=== PATIENT | female | born 1965 ===

== ENCOUNTER 2019-05-12 14:35 | Outpatient (CLI) | payer OTHER | END 2019-05-12 14:36 | disposition home or self-care (01) | LOC: LABHHL 14:35 | PROVIDERS: ATTEND Surgery | DX: N60.02 Solitary cyst of left breast (principal) | CPT/HCPCS: 88112 ==

== ENCOUNTER 2019-06-16 14:32 | Outpatient (CLI) | payer OTHER | END 2019-06-16 14:33 | disposition home or self-care (01) | LOC: LABHHL 14:32 | PROVIDERS: ATTEND Surgery | DX: N60.02 Solitary cyst of left breast (principal) | CPT/HCPCS: 88112 ==